=== PATIENT | male | born 1995 | race Asian ===

== ENCOUNTER 2024-05-08 22:17 | Emergency (ER) | payer MEDICAID, OTHER ==
[~2024-05-08] VITALS: Ht 177.8 cm; Wt 135.0 kg
[2024-05-08 22:38] VITALS: BP 124/70; PULSE 92; RESP 16; TEMP 98.3; O2SAT 100
[2024-05-09] MEDS ORDERED: IBUP-1492 PO (00:51)
== END 2024-05-09 00:59 | disposition home or self-care (01) ==
LOC: EMS 22:17
DX: S86.012A Strain of left Achilles tendon, initial encounter (principal); J45.909 Unspecified asthma, uncomplicated; F32.A Depression, unspecified; X58.XXXA Exposure to other specified factors, initial encounter; Y93.73 Activity, racquet and hand sports; Y92.89 Other specified places as the place of occurrence of the external cause; Y99.8 Other external cause status
CPT/HCPCS: 99282; Z7502